=== PATIENT | female | born 1960 | race Caucasian/White ===

== ENCOUNTER 2018-04-20 16:28 | Emergency (ER) | payer OTHER ==
[~2018-04-20] VITALS: Ht 157.5 cm; Wt 96.6 kg
[~2018-04-20 16:28] MED LIST: BENZ100C PO; GLYB5TAB3 PO; LEVO500T59 PO; METH4TAB2 PO
[2018-04-20 16:46] VITALS: BP 155/73
--- NOTE | 2018-04-20 17:08 | RAD ---
Three-view right ankle dated 04/20/2018. No comparison available. Clinical data indication: Pain after twisting injury. Swelling. FINDINGS: 3 views right ankle show normal bony alignment. There is a transverse fracture through the tip of the distal fibula, not significantly displaced. Possible small nondisplaced fracture of the posterior malleolus. Medial malleolus intact. Diffuse soft tissue swelling. Small ankle joint effusion. Talar dome is intact. Alignment anatomic. Small plantar spur. IMPRESSION: 1. Nondisplaced transverse fracture through the distal fibula. 2. Possible small nondisplaced fracture through the posterior malleolus versus overlap artifact. 3. Diffuse soft tissue swelling with small ankle joint effusion. Electronically signed by: Randy Cooley MD (04/20/2018 5:05 PM) [facility]
[2018-04-20] MEDS ORDERED: HYDROcodone/APAP 5/325MG 1 TAB TABLET PO ONE (17:45)
[2018-04-20] MEDS ORDERED: HYDR-2758 PO (18:44)
--- NOTE | 2018-04-20 18:44 | PHYS DOC ---
Past Medical History Past Medical History: No Pertinent History Past Surgical History: Appendectomy, , Other Additional Past Surgical Histo: cataract, back Alcohol Use: None Drug Use: None Adult General Chief Complaint Chief Complaint: ANKLE PROBLEM HPI HPI Patient is a 58 year old female who presents to the emergency room with complaints of right ankle pain after she rolled her ankle outward and felt a pop while walking in her yard this afternoon. She states that the injury happened at approximately 1500. Currently she reports that her pain is a 2 out of 10 on the pain scale, she has not taken anything for relief of her pain prior to arrival. She denies any numbness, or tingling. States she has been able to bear a little bit overweight on the affected extremity since the injury. Review of Systems Review of Systems Constitutional: Denies fever or chills [] Musculoskeletal: Denies back pain reports right lateral ankle pain Integument: Denies rash or skin lesions [] Neurologic: Denies headache, focal weakness or sensory changes [] Current Medications Current Medications Current Medications Medications (Trade) Dose Ordered Sig/Sonido Start Time Stop Time Status Last Admin Dose Admin Acetaminophen/ Hydrocodone Bitart (Lortab 5/325) 1 tab 1X ONCE 04/20/18 17:45 04/20/18 17:46 DC 04/20/18 18:05 1 TAB Allergies Allergies Allergies Coded Allergies Type Severity Reaction Last Updated Verified bacitracin Allergy Intermediate Rash 11/22/15 Yes doxycycline Allergy Intermediate Rash 11/23/15 Yes erythromycin base Allergy Intermediate Rash 11/23/15 Yes hydrocortisone Allergy Intermediate Rash 11/23/15 Yes neomycin Allergy Intermediate Rash 11/23/15 Yes polymyxin B Allergy Intermediate Rash 11/23/15 Yes Physical Exam Physical Exam Constitutional: Well developed, well nourished, no acute distress, non-toxic appearance. [] HENT: Normocephalic, atraumatic, bilateral external ears normal, nose normal. [] Eyes: PERRLA, conjunctiva normal, no discharge. [] Skin: Warm, dry, no erythema, no rash. [] Extremities: No cyanosis, no clubbing; right lateral ankle tenderness to palpation with 2+ edema and decreased range of motion of right ankle. Neurologic: Alert and oriented X 3, normal motor function, normal sensory function, no focal deficits noted. [] Psychologic: Affect normal, judgement normal, mood normal. [] Current Patient Data Vital Signs Vital Signs Date Time Temp Pulse Resp B/P (MAP) Pulse Ox O2 Delivery O2 Flow Rate FiO2 04/20/18 16:46 98.0 97 18 155/73 (100) 97 Room Air 98.0 EKG EKG [] Radiology/Procedures Radiology/Procedures IMAGING REPORT Signed PATIENT: HARIS HANSEN ACCOUNT: [id number] : 1960 LOCATION: ER AGE: 58 SEX: F EXAM STATUS: PRE ER ORD. PHYSICIAN: BETTY TREVIZO APRN REASON: R ankle injury PROCEDURE: ANKLE RIGHT 3V Three-view right ankle dated 04/20/2018. No comparison available. Clinical data indication: Pain after twisting injury. Swelling. FINDINGS: 3 views right ankle show normal bony alignment. There is a transverse fracture through the tip of the distal fibula, not significantly displaced. Possible small nondisplaced fracture of the posterior malleolus. Medial malleolus intact. Diffuse soft tissue swelling. Small ankle joint effusion. Talar dome is intact. Alignment anatomic. Small plantar spur. IMPRESSION: 1. Nondisplaced transverse fracture through the distal fibula. 2. Possible small nondisplaced fracture through the posterior malleolus versus overlap artifact. 3. Diffuse soft tissue swelling with small ankle joint effusion. Electronically signed by: Randy Cooley MD (04/20/2018 5:05 PM) [facility] DICTATED and SIGNED BY: RANDY COOLEY MD DATE: 04/20/18 1704 [] Course & Med Decision Making Course & Med Decision Making Pertinent Labs and Imaging studies reviewed. (See chart for details) Patient is a 58-year-old female who presents to emergency room with complaints of right ankle pain after rolling her ankle while in her urine this afternoon. Her vital signs are stable, and x-ray of the right ankle revealed a non- displaced transverse fracture through the distal fibulab and a possible small nondisplaced fracture through the posterior malleolus. She was placed in a short leg posterior splint with 4" orthoglass and a stirrup splint using 3" orthoglass by myself. Pt was given crutch gait instructions and a prescription for hydrocodone. Patient advised to follow-up with Dr. Morel, to call in the morning for follow-up appointment. Patient verbalized an understanding of home care, medications, follow-up, and return to ED instructions and was in agreement with the plan of care. [] Dragon Disclaimer Dragon Disclaimer This electronic medical record was generated, in whole or in part, using a voice recognition dictation system. Departure Departure Impression: Primary Impression: Right fibular fracture Additional Impression: Right ankle pain Disposition: 01 HOME, SELF-CARE Condition: STABLE Referrals: HARJEET SPANGLER MD (PCP) RAVEN MOREL MD Patient Instructions: Ankle Fracture, [id number] Additional Instructions: Fill prescription(s) and use as directed. Recommend application of ice, elevation, and rest of affected extremity. Wear the splint that was placed until follow up appointment, use the crutches as instructed. Follow-up with Dr. Morel in the next 1-2 days, called the morning for an appointment. Return to the ER if your symptoms worsen. Scripts Hydrocodone Bit/Acetaminophen (HYDROCODONE-APAP 5-325 ) 1 Each Tablet 1 TAB PO PRN Q6HRS PRN for PAIN for 5 Days, #20 TAB 0 Refills Prov: BETTY TREVIZO [employer] 04/20/18 Problem Qualifiers Primary Impression: Right fibular fracture Encounter type: initial encounter Fibula location: distal Fracture type: closed Fracture morphology: other fracture Qualified Codes: S82.831A - Other fracture of upper and lower end of right fibula, initial encounter for closed fracture Additional Impression: Right ankle pain Chronicity: acute Qualified Codes: M25.571 - Pain in right ankle and joints of right foot BETTY TREVIZO [employer] Apr 20, 2018 18:44
== END 2018-04-20 18:58 | disposition home or self-care (01) ==
LOC: ER 16:28
DX: S82.831A Other fracture of upper and lower end of right fibula, initial encounter for closed fracture (principal); Z90.89 Acquired absence of other organs; Z98.890 Other specified postprocedural states; Z88.1 Allergy status to other antibiotic agents; Z88.5 Allergy status to narcotic agent; X58.XXXA Exposure to other specified factors, initial encounter; Y93.01 Activity, walking, marching and hiking; Y92.096 Garden or yard of other non-institutional residence as the place of occurrence of the external cause; Y99.8 Other external cause status
CPT/HCPCS: 29515; 73610; 99284